=== PATIENT | male | born 1940 | race Caucasian/White ===

== ENCOUNTER 2017-07-12 16:43 | Inpatient (IN) | payer MEDICARE, OTHER ==
[~2017-07-12 16:43] MED LIST: ISOVUE-370 76%-LOCM 1 ML ONE
[2017-07-12 17:35] LABS: #Lymphocytes 2.7 thou/uL (1.20-3.40); #Monocytes 1.6 thou/uL (0.11-0.59); #Neutrophils 10.8 thou/uL (1.40-6.50); %Basophils 0.2 % (0.0-1.0); %Eosinophils 0.3 % (0.0-10.0); %Lymphocytes 17.9 % (21.0-51.0); %Monocytes 10.6 % (0.0-10.0); Hematocrit 51.2 % (42.0-52.0); Mean Platelet Volume 6.9 fL (7.4-10.4); Red Blood Cell (RBC) Count 5.42 mill/uL (4.70-6.10); White Blood Cell (WBC) Count 15.2 thou/uL (4.8-10.8)
[2017-07-12 18:00] LABS: Troponin I Less than 0.010 ng/mL (< 0.028)
[2017-07-12 18:05] LABS: ALT (SGPT) 32 U/L (8-55); AST (SGOT) 23 U/L (5-34); Alkaline Phosphatase 84 U/L (40-150); Anion Gap 14 mmol/L (10-20); BUN (Urea Nitrogen) 24 mg/dL (8.4-25.7); Bilirubin, Total 0.7 mg/dL (0.2-1.2); CK (CPK) 110 U/L (30-200); Calc. Creatinine Clearance 0 mL/min (70-130); Calcium 9.2 mg/dL (7.8-10.44); Carbon Dioxide 23 mmol/L (23-31); Chloride 100 mmol/L (98-107); Estimated GFR-MDRD Greater than 90; Globulin 2.5 g/dL (2.4-3.5); Protein, Total 6.8 g/dL (5.8-8.1)
[2017-07-12] MEDS ORDERED: Levofloxacin 500 mg/D5W 100 ml Premix Bag ONE (19:27)
[2017-07-12 19:45] LABS: Bilirubin Negative (Negative); Blood, Urine Negative (Negative); Glucose, Urine (Dipstick) Negative (Negative); Ketone, Urine Trace mg/dL (Negative); Nitrite Negative (Negative); Protein, Urine (Dipstick) Negative (Neg-Trace); Urobilinogen 0.2 mg/dL (0.2-1.0)
--- NOTE | 2017-07-12 20:09 | RAD ---
PORTABLE CHEST 07/12/17 PROVIDED CLINICAL HISTORY: Dyspnea. Comparison is made with the study dated 07/12/17, 2:56 p.m. The cardiac and mediastinal silhouette is within normal limits. Parenchymal opacity at the left lung base presumably reflects volume loss given its short interval development time. The lungs appear othe rwise clear. Emphysematous changes are seen. No pleural fluid or pneumothorax evident. Atherosclerosi s is noted. IMPRESSION: Development of left basilar parenchymal opacity presumably reflecting subsegmental atelectasis, given that it was not present on the chest radiograph performed earlier today. Followup is recommended. POS: DHRUV
--- NOTE | 2017-07-12 21:41 | CT ---
CT PULMONARY ANGIOGRAM WITH IV CONTRAST AND 3D MIP RECONSTRUCTIONS 07/12/17 PROVIDED CLINICAL HISTORY: Hypoxia. FINDINGS: Comparison is made with the study dated 05/28/16. The heart, pericardium and great vessels demonstrate no acute abnormality. there is no evidence for c entral or segmental pulmonary embolus. Vascular calcification including coronary calcium is seen. The re are several nodular densities present at the right upper lobe, one of which appears stable as comp ared to the prior examination. There is a focal area of parenchymal opacity present at the left lung base posteriorly. Emphysematous changes are seen. Airway appears patent and of normal caliber. No pleural fluid or pneumothorax apparent. The visualized portions of the upper abdomen demonstrate no acute abnormality. Bilateral adrenal kwesi omas are again seen. The osseous structures demonstrate no concerning osteoblastic or osteolytic lesi ons. IMPRESSION: 1. No evidence for central or segmental pulmonary embolus. 2. Emphysematous change. 3. Parenchymal opacity of the left lung base may reflect pneumonia. 4. Right upper lobe pulmonary nodules which are somewhat clustered in distribution suggesting in fectious change. CT followup in 6 to 12 months is recommended. POS: DHRUV
[2017-07-12 22:51] VITALS: BMI 22.1
[2017-07-12] MEDS ORDERED: Melatonin 3 MG TAB PO PRN (23:58)
[2017-07-13] MEDS ORDERED: Bisacodyl 5 MG TAB PO PRN (00:18)
[2017-07-13] MEDS ORDERED: Melatonin 3 MG TAB PO PRN (00:29)
[2017-07-13] MEDS: Nicotine 21 MG PATCH TD SCH (00:50)
[2017-07-13] MEDS ORDERED: Acetaminophen 325 MG TAB PO PRN (00:52)
--- NOTE | 2017-07-13 02:22 | HP ---
PRIMARY CARE PHYSICIAN: Basia Melendrez M.D. CHIEF COMPLAINT: Shortness of breath. HISTORY OF PRESENT ILLNESS: Mr. Hunter is a pleasant 77-year-old gentleman who was seen at [facility] on 07/13/2017. He reports that he has been short of breath on and off over the last couple of months, worse over the last week. He also reports that he has cough that is productive of minimal amount of sputum. He is having difficulty sleeping. He reports that he recently completed a course of steroids. [facility] and was transferred to the emergency room. He reportedly had oxyge n saturations of 80s on room air. He denies any chest pain. He denies any fevers or chills. He denies any sick contacts. He denies a ny body aches. REVIEW OF SYSTEMS: The following complete review of systems was negative, unless otherwise mentioned in the HPI or below: Constitutional: Weight loss or gain, sense of well-being, ability to conduct usual activities, exerc ise tolerance. Skin/Breast: Rash, itching, changes in hair growth or loss, nail changes, breast lumps, tenderness, swelling, nipple discharge. Eyes: Vision, double vision, tearing, blind spots, pain. ENT/Mouth: Headaches (location, time of onset, duration, precipitating factors), vertigo, lightheade dness, injury. Vision, double vision, tearing, blind spots, pain, nose bleeding, colds, obstruction, discharge, dental difficulties, gingival bleeding, dentures, neck stiffness, pain, tenderness, masses in thyroid or other areas. Cardiovascular: Precordial pain, substernal distress, palpitations, syncope, dyspnea on exertion, or thopnea, nocturnal paroxysmal dyspnea, edema, cyanosis, hypertension, heart murmurs, varicosities, ph lebitis, claudication. Respiratory: Pain, shortness of breath, wheezing, stridor, cough, hemoptysis, fever or night sweats. Gastrointestinal: Poor appetite, dysphagia, indigestion, abdominal pain, heartburn, eructation, naus ea, vomiting, hematemesis, jaundice, constipation, or diarrhea, abnormal stools (mandeep-colored, tarry, bloody, greasy, foul smelling), flatulence, hemorrhoids, recent changes in bowel habits. Genitourinary: Urgency, frequency, dysuria, nocturia, hematuria, polyuria, oliguria, unusual (or gerald nge in) color of urine, stones, hesitancy, change in size of stream, dribbling, acute retention or in continence, libido, potency. Musculoskeletal: Pain, swelling, redness or heat of muscles or joints, limitation, of motion, muscul ar weakness, atrophy, cramps. Neurologic/Psychiatric: Convulsions, paralyses, tremor, incoordination, paresthesias, difficulties w ith memory of speech, sensory or motor disturbances, or muscular coordination (ataxia, tremor), emoti onal problems, anxiety, depression, previous psychiatric care, unusual perceptions, hallucinations. Allergy/Immunologic: Skin rash, anemia, bleeding tendency, polydipsia, polyuria, intolerance to heat or cold. PAST MEDICAL HISTORY: Significant for pulmonary embolism diagnosed in 05/2016, he reports finishing anticoagulation course in 09/2016, hypertension, dyslipidemia, chronic obstructive pulmonary disease, PFO closure in the past, stroke in the past due to PFO, depression, dyslipidemia, gastroesophageal r eflux disease, peptic ulcer disease/gastrointestinal bleeding more than 10 years ago and tobacco abus e. PAST SURGICAL HISTORY: Significant for right knee replacement, EGD, PFO closure, left foot surgery a nd tonsillectomy. ALLERGIES: PENICILLIN. CURRENT HOME MEDICATIONS: These include acetaminophen p.r.n., aspirin 81 mg at bedtime, vitamin B12 of 1000 mcg daily, diltiazem 60 mg 2 times a day, ferrous sulfate 65 mg daily, lisinopril 10 mg daily , multivitamins 1 capsule daily, nefazodone 150 mg 2 times a day, Pravachol 40 mg at bedtime. It als o appears that he is taking Plavix 75 mg daily. SOCIAL HISTORY: He smokes 1 pack of cigarillos a day. He drinks alcohol occasionally. He denies re creational drug use. FAMILY HISTORY: He denies any family history of premature coronary artery disease. CODE STATUS: I discussed his code status. He is FULL CODE. PHYSICAL EXAMINATION: GENERAL: On examination, Mr. Hunter is awake and alert, not in acute distress. VITAL SIGNS: Blood pressure is 118/69, pulse is 82, he is breathing at rate of 16, and saturating 94 % on 4 liters of oxygen. He is afebrile. EYES: No scleral icterus. No conjunctival pallor. ENT: Moist mucosal membranes, no oropharyngeal erythema or exudates. NECK: Supple, nontender, normal range of movement. Trachea is midline. RESPIRATORY: Markedly diminished breath sounds at both bases. Accessory muscles of breathing are no t active. Chest wall movements are symmetric bilaterally. CARDIOVASCULAR: S1 and S2 are heard, regular. Peripheral pulses palpable. No carotid bruit, no per icardial rub. ABDOMEN: Soft, nontender, bowel sounds are heard, no hepatomegaly, no splenomegaly. NEUROLOGIC: Cranial nerves II-XII are intact. Deep tendon reflexes are 2+. MUSCULOSKELETAL: Power is 5/5 in all 4 extremities. Normal range of movement at all major extremity joints. SKIN: No rashes or subcutaneous nodules. LYMPHATIC: No cervical lymphadenopathy. PSYCHIATRIC: Normal mood, normal affect, patient is oriented to person, place, and time. LABORATORY DATA AND IMAGING: Mr. Hunter's labs and investigations were reviewed. I reviewed his e lectrocardiogram, which shows normal sinus rhythm with premature ventricular complexes. Corrected QT interval is 443 milliseconds. I also reviewed his chest x-ray, which appears to show a left lower l obe infiltrate. He also had CT angiogram of the chest, which did not reveal any central pulmonary em bolism. He has emphysematous changes, parenchymal opacity of the left lung base which may reflect pn eumonia and right upper lobe pulmonary nodules which are clustered in distribution suggesting infecti ous change. Radiologist recommends CT follow up in 6-12 months. Laboratory investigation show leuko cytosis with 15,200 white cells, of which 71% are neutrophils, normal hemoglobin, normal platelet cou nt, decreased sodium of 133, otherwise normal comprehensive metabolic profile, normal troponin I and urinalysis positive for ketones. ASSESSMENT AND PLAN: Mr. Hunter is a pleasant 77-year-old gentleman who was seen at [facility] on 07/13/2017. His problem list includes: 1. Shortness of breath: Most likely secondary to chronic obstructive pulmonary disease exacerbation , although pneumonia is a possibility as well. 2. Chronic obstructive pulmonary disease exacerbation: He will be admitted to the hospital and tana annita with oxygen, steroids, bronchodilators and antibiotics. We will consult Pulmonology Service for opinion and help with further management. 3. Pneumonia: I will start him on empiric levofloxacin. 4. Tobacco abuse: The patient has been counseled regarding tobacco cessation, we will start nicotin e replacement therapy. 5. Hypertension: Monitor vital signs, titrate antihypertensives as needed. 6. Gastroesophageal reflux disease: Appears to be stable. 7. Dyslipidemia: Continue statins. Many thanks for allowing me to participate in your patient's care. Please feel free to contact me wi th any questions or concerns. LEVEL OF RISK: High. LEVEL OF COMPLEXITY: High.
[2017-07-13 04:23] LABS: #Basophils 0.1 thou/uL (0.0-0.2); #Eosinphils 0.1 thou/uL (0.0-0.7); #Lymphocytes 2.9 thou/uL (1.20-3.40); #Monocytes 1.6 thou/uL (0.11-0.59); #Neutrophils 11.4 thou/uL (1.40-6.50); %Basophils 0.5 % (0.0-1.0); %Eosinophils 0.8 % (0.0-10.0); %Monocytes 9.9 % (0.0-10.0); Hematocrit 44.9 % (42.0-52.0); Mean Platelet Volume 6.8 fL (7.4-10.4); Red Blood Cell (RBC) Count 4.73 mill/uL (4.70-6.10); White Blood Cell (WBC) Count 16.1 thou/uL (4.8-10.8)
[2017-07-13 04:43] LABS: Anion Gap 10 mmol/L (10-20); BUN (Urea Nitrogen) 18 mg/dL (8.4-25.7); Calc. Creatinine Clearance 81 mL/min (70-130); Carbon Dioxide 23 mmol/L (23-31); Chloride 101 mmol/L (98-107); Estimated GFR-MDRD Greater than 90
[2017-07-13] MEDS ORDERED: predniSONE 20 MG TAB PO SCH (08:00)
[2017-07-13] MEDS: Ferrous Sulfate 325 MG TAB PO SCH (08:55)
[2017-07-13] MEDS: NEFAZODONE HCL PO SCH ×2 (09:00→20:28)
[2017-07-13] MEDS ORDERED: Lisinopril 10 MG TAB PO SCH (09:00)
[2017-07-13] MEDS: Cyanocobalamin (Vitamin B-12) 1,000 MCG TAB PO SCH (09:07)
[2017-07-13] MEDS: Clopidogrel Bisulfate 75 MG TAB PO SCH (09:07)
[2017-07-13] MEDS: Multivitamin W/ Minerals 1 TAB PO SCH (09:07)
[2017-07-13] MEDS: Enoxaparin Sodium 40 MG/0.4 ML SYRINGE SC SCH (09:07)
--- NOTE | 2017-07-13 09:54 | PDOC.PN ---
- Subjective Encounter Start Date: 07/13/17 Encounter Start Time: 09:52 Mr. Hunter was seen today in follow-up of COPD exacerbation and pneumonia. He says he is feeling a little better, but he is still quite short winded. He says she was never aware that he had any chronic lung disease, but admits to over 60 pack year history of smoking. - Objective Resuscitation Status: Resuscitation Status FULL:Full Resuscitation MAR Reviewed: Yes Vital Signs & Weight: Vital Signs (12 hours) Temp Pulse Resp BP BP BP Pulse Ox 07/13/17 09:06 116/67 07/13/17 08:00 97.8 F 96 20 94 L 07/13/17 07:50 97.8 F 96 20 116/67 93 L 07/13/17 06:32 101 H 16 96 07/13/17 04:00 93 L 07/13/17 03:50 98.0 F 94 20 115/68 94 L 07/13/17 02:14 91 16 95 07/13/17 00:22 97.8 F 82 16 118/69 94 L 07/13/17 00:00 93 L 07/12/17 23:52 97.8 F 82 16 118/69 94 L 07/12/17 22:36 92 16 92 L Weight Weight 154 lb 11.2 oz I&O: 07/12/17 07/13/17 07/14/17 06:59 06:59 06:59 Intake Total 630 Output Total 700 Balance -70 Result Diagrams: 07/13/17 03:45 07/13/17 03:45 Phys Exam - Physical Examination HEENT: PERRLA decreased air movement, and some rhonchi Cardiovascular: RRR, no significant murmur, no rub Gastrointestinal: soft, non-tender, positive bowel sounds Musculoskeletal: no edema Dx/Plan (1) Acute and chronic respiratory failure Code(s): J96.20 - ACUTE AND CHR RESP FAILURE, UNSP W HYPOXIA OR HYPERCAPNIA Status: Acute (2) Community acquired pneumonia Code(s): J18.9 - PNEUMONIA, UNSPECIFIED ORGANISM Status: Acute (3) Former smoker Status: Chronic (4) HTN (hypertension) Code(s): I10 - ESSENTIAL (PRIMARY) HYPERTENSION Status: Chronic Qualifiers: (5) COPD exacerbation Code(s): J44.1 - CHRONIC OBSTRUCTIVE PULMONARY DISEASE W (ACUTE) EXACERBATION Status: Acute - Plan * Acute on chronic respiratory failure due to Pneumonia, and COPD exacerbation- he is slightly improved today * Continue Levaquin, and Duonebs and steroids * Await Pulmonary input * History of PE- there was no evidence of PE on this CTA * HTN- blood pressure is stable
[2017-07-13] MEDS: Diltiazem HCl SR 60 mg Capsule PO SCH ×2 (11:19→20:30)
--- NOTE | 2017-07-13 19:30 | CON ---
DATE OF CONSULTATION: 07/13/2017 HISTORY OF PRESENT ILLNESS: Rj Hunter is a 77-year-old gentleman, who is well known to me fro m previous admission. He presented to the hospital with increasing shortness of breath, cough, unresponsive to usual home m edication. He sees Dr. Melendrez. He says he has limitation of activity such that he can barely walk a couple hundred feet without getting short of breath. Denies any chest pain, chills, or sweats. He has not been in the office for over a year. His sats were 80% on room air in the ER. PAST MEDICAL HISTORY: Pertinent for, 1. Hypertension. 2. Panic attacks. 3. . 4. Previous PE. 4. Previous pneumonia. PAST SURGICAL HISTORY: As outlined included right knee PFO closure, left foot surgery, tonsils. MEDICATIONS: From home includes aspirin, Tylenol, vitamin, lisinopril 10, Cardizem 60 twice a day, B 12. ALLERGIES: PENICILLIN. SOCIAL HISTORY: Former smoker. No alcohol abuse. FAMILY HISTORY: Unremarkable due to his medical record. REVIEW OF SYSTEMS: Ten-point negative. PHYSICAL EXAMINATION: GENERAL: He appears to be in no distress, coughing. VITAL SIGNS: Blood pressure is 116/67, sats is 96%, respirations 18. CHEST: No wheezing, crackles. CARDIAC: Normal S1, S2. ABDOMEN: Soft. No masses. LABORATORY DATA: White count 16,000, H and H 15 and 44, platelet count was 216. Sodium is 130. Giuliana ctrolytes are normal. X-ray shows left-sided infiltrate. CAT scan shows a left-sided infiltrate. IMPRESSION: 1. Chronic obstructive pulmonary disease exacerbation, bronchitis, left lower lobe pneumonia. 2. Hyponatremia. 3. Previous pulmonary embolism. PLAN: I added prednisone to his present regimen. I will discontinue lisinopril at this stage. Continue supportive care and PT. We will follow while in the ICU. Please note this is 70-minute bedside time spent with the patient.
[2017-07-13] MEDS: predniSONE 20 MG TAB PO SCH (20:30)
[2017-07-13] MEDS: Atorvastatin Calcium 10 MG TAB PO SCH (20:30)
[2017-07-14] MEDS: Nicotine 21 MG PATCH TD SCH (01:26)
[2017-07-14 04:52] LABS: Anion Gap 13 mmol/L (10-20); BUN (Urea Nitrogen) 18 mg/dL (8.4-25.7); Calc. Creatinine Clearance 78 mL/min (70-130); Calcium 9.2 mg/dL (7.8-10.44); Carbon Dioxide 22 mmol/L (23-31); Chloride 105 mmol/L (98-107); Estimated GFR-MDRD Greater than 90
[2017-07-14] MEDS: Ferrous Sulfate 325 MG TAB PO SCH (08:57)
[2017-07-14] MEDS: Cyanocobalamin (Vitamin B-12) 1,000 MCG TAB PO SCH (08:58)
[2017-07-14] MEDS: NEFAZODONE HCL PO SCH ×2 (08:58→22:05)
[2017-07-14] MEDS: predniSONE 20 MG TAB PO SCH ×2 (08:58→22:07)
[2017-07-14] MEDS: Diltiazem HCl SR 60 mg Capsule PO SCH ×2 (08:58→22:06)
[2017-07-14] MEDS: Clopidogrel Bisulfate 75 MG TAB PO SCH (08:58)
[2017-07-14] MEDS: Multivitamin W/ Minerals 1 TAB PO SCH (08:58)
[2017-07-14] MEDS: Enoxaparin Sodium 40 MG/0.4 ML SYRINGE SC SCH (09:00)
--- NOTE | 2017-07-14 10:30 | PDOC.PN ---
- Subjective Encounter Start Date: 07/14/17 Encounter Start Time: 10:15 Subjective: breathing better -: desaturates on removal of nasal oxygen - Objective Resuscitation Status: Resuscitation Status FULL:Full Resuscitation MAR Reviewed: Yes Vital Signs & Weight: Vital Signs (12 hours) Temp Pulse Resp BP Pulse Ox 07/14/17 08:09 97.3 F L 77 14 114/69 94 L 07/14/17 08:00 97.3 F L 77 14 94 L 07/14/17 06:43 95 07/14/17 06:41 74 20 95 07/14/17 01:29 72 18 96 Weight Weight 154 lb 11.2 oz I&O: 07/13/17 07/14/17 07/15/17 06:59 06:59 06:59 Intake Total 630 720 Output Total 700 Balance -70 720 Result Diagrams: 07/13/17 03:45 07/14/17 03:48 Phys Exam - Physical Examination HEENT: PERRLA, moist MMs Neck: no JVD, supple Respiratory: no rales, wheezing present Cardiovascular: RRR, no significant murmur Gastrointestinal: soft, non-tender, positive bowel sounds Musculoskeletal: no edema, pulses present Neurological: non-focal, moves all 4 limbs Psychiatric: A&O x 3 Dx/Plan (1) Acute and chronic respiratory failure Code(s): J96.20 - ACUTE AND CHR RESP FAILURE, UNSP W HYPOXIA OR HYPERCAPNIA Status: Acute Qualifiers: Respiratory failure complication: hypoxia and hypercapnia Qualified Code(s) : J96.21 - Acute and chronic respiratory failure with hypoxia; J96.22 - Acute and chronic respiratory failure with hypercapnia; J96.22 - Acute and chronic respiratory failure with hypercapnia; J96.22 - Acute and chronic respiratory failure with hypercapnia (2) COPD exacerbation Code(s): J44.1 - CHRONIC OBSTRUCTIVE PULMONARY DISEASE W (ACUTE) EXACERBATION Status: Acute (3) Community acquired pneumonia Code(s): J18.9 - PNEUMONIA, UNSPECIFIED ORGANISM Status: Acute Qualifiers: Laterality: left Lung location: lower lobe of lung Qualified Code(s): J18.1 - Lobar pneumonia, unspecified organism (4) HLD (hyperlipidemia) Code(s): E78.5 - HYPERLIPIDEMIA, UNSPECIFIED Status: Chronic Qualifiers: Hyperlipidemia type: unspecified (5) HTN (hypertension) Code(s): I10 - ESSENTIAL (PRIMARY) HYPERTENSION Status: Chronic Qualifiers: Hypertension type: essential hypertension (6) RBBB Code(s): I45.10 - UNSPECIFIED RIGHT BUNDLE-BRANCH BLOCK Status: Chronic - Plan is on levaquin -: oral prednisone, duonebs -: to amb as tolerated with oxygen for today -: taper and dc oxygen for spo2 of 90% * . Review of Systems - Medications/Allergies Allergies/Adverse Reactions: Allergies Allergy/AdvReac Type Severity Reaction Status Date / Time Penicillins Allergy swelling Verified 05/28/16 20:03 Medications: Current Medications Acetaminophen (Tylenol) 650 mg PO Q4H PRN PRN Reason: Headache/Fever or Pain Albuterol/Ipratropium (Duoneb) 3 ml NEB Q4H PRN PRN Reason: SOB &/or Wheezing Albuterol/Ipratropium (Duoneb) 3 ml NEB [id number] [facility] Last Admin: 07/14/17 06:41 Dose: 3 ml Aspirin (Aspirin Chewable) 81 mg PO HS [facility] Last Admin: 07/13/17 20:30 Dose: 81 mg Atorvastatin Calcium (Lipitor) 10 mg PO HS [facility] Last Admin: 07/13/17 20:30 Dose: 10 mg Bisacodyl (Dulcolax) 10 mg PO DAILYPRN PRN PRN Reason: Constipation Clopidogrel Bisulfate (Plavix) 75 mg PO DAILY [facility] Last Admin: 07/14/17 08:58 Dose: 75 mg Cyanocobalamin (Vitamin B-12) 1,000 mcg PO DAILY [facility] Last Admin: 07/14/17 08:58 Dose: 1,000 mcg Diltiazem HCl (Cardizem Sr) 60 mg PO BID [facility] Last Admin: 07/13/17 20:30 Dose: 60 mg Enoxaparin Sodium (Lovenox) 40 mg SC 0900 [facility] Last Admin: 07/14/17 09:00 Dose: Not Given Ferrous Sulfate (Feosol) 325 mg PO QAM-WM [facility] Last Admin: 07/14/17 08:57 Dose: 325 mg Levofloxacin 750 mg/ Device 150 mls @ 100 mls/hr IVPB Q24HR [facility] Last Admin: 07/14/17 01:27 Dose: 150 mls Iron/Minerals/Multivitamins (Theragran M) 1 tab PO DAILY [facility] Last Admin: 07/14/17 08:58 Dose: 1 tab Melatonin (Melatonin) 3 mg PO HS PRN PRN Reason: Insomnia Nicotine (Nicoderm Patch) 21 mg TD Q24HR [facility] Last Admin: 07/14/17 01:26 Dose: 21 mg Nefazodone Hcl 150 (Mg) 0 each PO BID [facility] Last Admin: 07/14/17 08:58 Dose: 1 each Prednisone (Prednisone) 20 mg PO BID [facility] Last Admin: 07/14/17 08:58 Dose: 20 mg Sodium Chloride (Flush - Normal Saline) 10 ml IVF PRN PRN PRN Reason: Saline Flush
[2017-07-14] MEDS: Atorvastatin Calcium 10 MG TAB PO SCH (22:06)
--- NOTE | 2017-07-14 22:12 | PRG ---
DATE OF SERVICE: 07/14/2017 SUBJECTIVE: Mr. Hunter is doing well. He says he is feeling better. OBJECTIVE: VITAL SIGNS: He is afebrile, heart rate is 77, respiratory rate is 14, oximetry is 94% and blood pre ssure 114/69. LUNGS: Remarkable for crackles at both lung bases, not wheezing. HEART: Regular rhythm. Abdomen: Soft. IMAGING DATA: Chest radiograph was reviewed. There is an infiltrate in his left base. CT scan also shows this infiltrate. IMPRESSION: 1. Community-acquired pneumonia. 2. Acute bronchitis with pneumonia. 3. Chronic obstructive pulmonary disease exacerbation. 4. Mild hyponatremia, likely related with pneumonia. 5. History of thromboembolic disease. PLAN: Continue antibiotics, steroids, nebulizer treatments and serial exams. Hopefully, he will be a candidate for discharge within the next 24-48 hours, so he can be home for [place].
[2017-07-15] MEDS: Nicotine 21 MG PATCH TD SCH (01:26)
[2017-07-15] MEDS: NEFAZODONE HCL PO SCH ×2 (08:23→21:30)
[2017-07-15] MEDS: Clopidogrel Bisulfate 75 MG TAB PO SCH (08:24)
[2017-07-15] MEDS: predniSONE 20 MG TAB PO SCH ×2 (08:24→21:30)
[2017-07-15] MEDS: Ferrous Sulfate 325 MG TAB PO SCH (08:24)
[2017-07-15] MEDS: Cyanocobalamin (Vitamin B-12) 1,000 MCG TAB PO SCH (08:24)
[2017-07-15] MEDS: Multivitamin W/ Minerals 1 TAB PO SCH (08:24)
[2017-07-15] MEDS: Diltiazem HCl SR 60 mg Capsule PO SCH ×2 (08:25→21:30)
[2017-07-15] MEDS: Enoxaparin Sodium 40 MG/0.4 ML SYRINGE SC SCH (08:27)
--- NOTE | 2017-07-15 11:56 | PDOC.PN ---
- Subjective Encounter Start Date: 07/15/17 Encounter Start Time: 08:15 Subjective: breathing better, is off oxygen spo2 around 90% -: overall feels better - Objective Resuscitation Status: Resuscitation Status FULL:Full Resuscitation MAR Reviewed: Yes Vital Signs & Weight: Vital Signs (12 hours) Temp Pulse Resp BP Pulse Ox 07/15/17 08:35 98 F 82 20 123/74 90 L 07/15/17 06:41 90 L 07/15/17 06:39 70 18 90 L Weight Weight 154 lb 11.2 oz I&O: 07/14/17 07/15/17 07/16/17 06:59 06:59 06:59 Intake Total 720 1510 350 Balance 720 1510 350 Result Diagrams: 07/13/17 03:45 07/14/17 03:48 Phys Exam - Physical Examination HEENT: PERRLA, moist MMs Neck: no JVD, supple Respiratory: no wheezing, no rales rhonchi+ Cardiovascular: RRR, no significant murmur Gastrointestinal: soft, non-tender, positive bowel sounds Musculoskeletal: no edema, pulses present Neurological: non-focal, moves all 4 limbs Psychiatric: A&O x 3 Dx/Plan (1) COPD exacerbation Code(s): J44.1 - CHRONIC OBSTRUCTIVE PULMONARY DISEASE W (ACUTE) EXACERBATION Status: Acute (2) Acute and chronic respiratory failure Code(s): J96.20 - ACUTE AND CHR RESP FAILURE, UNSP W HYPOXIA OR HYPERCAPNIA Status: Resolved Qualifiers: Respiratory failure complication: hypoxia and hypercapnia Qualified Code(s) : J96.21 - Acute and chronic respiratory failure with hypoxia; J96.22 - Acute and chronic respiratory failure with hypercapnia; J96.22 - Acute and chronic respiratory failure with hypercapnia; J96.22 - Acute and chronic respiratory failure with hypercapnia (3) Community acquired pneumonia Code(s): J18.9 - PNEUMONIA, UNSPECIFIED ORGANISM Status: Acute Qualifiers: Laterality: left Lung location: lower lobe of lung Qualified Code(s): J18.1 - Lobar pneumonia, unspecified organism (4) HLD (hyperlipidemia) Code(s): E78.5 - HYPERLIPIDEMIA, UNSPECIFIED Status: Chronic Qualifiers: Hyperlipidemia type: unspecified (5) HTN (hypertension) Code(s): I10 - ESSENTIAL (PRIMARY) HYPERTENSION Status: Chronic Qualifiers: Hypertension type: essential hypertension (6) RBBB Code(s): I45.10 - UNSPECIFIED RIGHT BUNDLE-BRANCH BLOCK Status: Chronic - Plan is on levaquin, duonebs and prednisone -: to amb as tolerated -: spo2 is improving -: dc plan in am home before jun * . Review of Systems - Medications/Allergies Allergies/Adverse Reactions: Allergies Allergy/AdvReac Type Severity Reaction Status Date / Time Penicillins Allergy swelling Verified 05/28/16 20:03 Medications: Current Medications Acetaminophen (Tylenol) 650 mg PO Q4H PRN PRN Reason: Headache/Fever or Pain Albuterol/Ipratropium (Duoneb) 3 ml NEB Q4H PRN PRN Reason: SOB &/or Wheezing Albuterol/Ipratropium (Duoneb) 3 ml NEB [id number] [facility] Last Admin: 07/15/17 06:39 Dose: 3 ml Aspirin (Aspirin Chewable) 81 mg PO HS [facility] Last Admin: 07/14/17 22:07 Dose: 81 mg Atorvastatin Calcium (Lipitor) 10 mg PO HS [facility] Last Admin: 07/14/17 22:06 Dose: 10 mg Bisacodyl (Dulcolax) 10 mg PO DAILYPRN PRN PRN Reason: Constipation Clopidogrel Bisulfate (Plavix) 75 mg PO DAILY [facility] Last Admin: 07/15/17 08:24 Dose: 75 mg Cyanocobalamin (Vitamin B-12) 1,000 mcg PO DAILY [facility] Last Admin: 07/15/17 08:24 Dose: 1,000 mcg Diltiazem HCl (Cardizem Sr) 60 mg PO BID [facility] Last Admin: 07/15/17 08:25 Dose: 60 mg Enoxaparin Sodium (Lovenox) 40 mg SC 0900 [facility] Last Admin: 07/15/17 08:27 Dose: Not Given Ferrous Sulfate (Feosol) 325 mg PO QAM-WM [facility] Last Admin: 07/15/17 08:24 Dose: 325 mg Levofloxacin 750 mg/ Device 150 mls @ 100 mls/hr IVPB Q24HR [facility] Last Admin: 07/15/17 01:27 Dose: 150 mls Iron/Minerals/Multivitamins (Theragran M) 1 tab PO DAILY [facility] Last Admin: 07/15/17 08:24 Dose: 1 tab Melatonin (Melatonin) 3 mg PO HS PRN PRN Reason: Insomnia Nicotine (Nicoderm Patch) 21 mg TD Q24HR [facility] Last Admin: 07/15/17 01:26 Dose: 21 mg Nefazodone Hcl 150 (Mg) 0 each PO BID [facility] Last Admin: 07/15/17 08:23 Dose: 1 each Prednisone (Prednisone) 20 mg PO BID [facility] Last Admin: 07/15/17 08:24 Dose: 20 mg Sodium Chloride (Flush - Normal Saline) 10 ml IVF PRN PRN PRN Reason: Saline Flush
--- NOTE | 2017-07-15 16:36 | PRG ---
DATE OF SERVICE: 07/15/2017 SUBJECTIVE: Mr. Hunter is feeling better. He does not feel he is quite ready to go home. I think he will be tomorrow. PHYSICAL EXAMINATION: VITAL SIGNS: He is afebrile, heart rate is 82, respiratory rate is 20, oximetry is 90% on room air, and blood pressure 123/74. LUNGS: Remarkable for wheezes in both lung bases. HEART: Regular rhythm. ABDOMEN: Soft. IMPRESSION: 1. Pneumonia. 2. Acute bronchitis. 3. Chronic obstructive pulmonary disease exacerbation. 4. Mild hyponatremia. 5. History of thromboembolic disease. Hopefully, we can discharge him home in the morning. Antibio tics can be switched to p.o. antibiotics.
[2017-07-15] MEDS ORDERED: Nicotine 21 MG PATCH TD SCH (21:00)
[2017-07-15] MEDS: Atorvastatin Calcium 10 MG TAB PO SCH (21:30)
[2017-07-16] MEDS: Multivitamin W/ Minerals 1 TAB PO SCH (08:04)
[2017-07-16] MEDS: Ferrous Sulfate 325 MG TAB PO SCH (08:04)
[2017-07-16] MEDS: Diltiazem HCl SR 60 mg Capsule PO SCH (08:04)
[2017-07-16] MEDS: Clopidogrel Bisulfate 75 MG TAB PO SCH (08:04)
[2017-07-16] MEDS: Enoxaparin Sodium 40 MG/0.4 ML SYRINGE SC SCH (08:04)
[2017-07-16] MEDS: NEFAZODONE HCL PO SCH (08:04)
[2017-07-16] MEDS: predniSONE 20 MG TAB PO SCH (08:04)
[2017-07-16 08:22] VITALS: BP 120/68; TEMP 97.3
--- NOTE | 2017-07-16 10:39 | PDOC.PN ---
- Subjective Encounter Start Date: 07/16/17 Encounter Start Time: 10:15 Subjective: breathing better, is sitting in chair -: wants to go home - Objective Resuscitation Status: Resuscitation Status FULL:Full Resuscitation MAR Reviewed: Yes Vital Signs & Weight: Vital Signs (12 hours) Temp Pulse Resp BP Pulse Ox 07/16/17 08:00 97.3 F L 78 20 93 L 07/16/17 07:27 97.3 F L 78 20 120/68 91 L 07/16/17 07:00 80 16 07/16/17 02:39 92 L 07/16/17 01:06 76 18 92 L Weight Weight 154 lb 11.2 oz I&O: 07/15/17 07/16/17 07/17/17 06:59 06:59 06:59 Intake Total 1510 2160 Balance 1510 2160 Result Diagrams: 07/13/17 03:45 07/14/17 03:48 Phys Exam - Physical Examination HEENT: PERRLA, moist MMs Neck: no JVD, supple Respiratory: no wheezing, no rales Cardiovascular: RRR, no significant murmur Gastrointestinal: soft, non-tender, positive bowel sounds Musculoskeletal: no edema, pulses present Neurological: non-focal, moves all 4 limbs Psychiatric: A&O x 3 Dx/Plan (1) COPD exacerbation Code(s): J44.1 - CHRONIC OBSTRUCTIVE PULMONARY DISEASE W (ACUTE) EXACERBATION Status: Acute (2) Acute and chronic respiratory failure Code(s): J96.20 - ACUTE AND CHR RESP FAILURE, UNSP W HYPOXIA OR HYPERCAPNIA Status: Resolved Qualifiers: Respiratory failure complication: hypoxia and hypercapnia Qualified Code(s) : J96.21 - Acute and chronic respiratory failure with hypoxia; J96.22 - Acute and chronic respiratory failure with hypercapnia; J96.22 - Acute and chronic respiratory failure with hypercapnia; J96.22 - Acute and chronic respiratory failure with hypercapnia (3) Community acquired pneumonia Code(s): J18.9 - PNEUMONIA, UNSPECIFIED ORGANISM Status: Acute Qualifiers: Laterality: left Lung location: lower lobe of lung Qualified Code(s): J18.1 - Lobar pneumonia, unspecified organism (4) HLD (hyperlipidemia) Code(s): E78.5 - HYPERLIPIDEMIA, UNSPECIFIED Status: Chronic Qualifiers: Hyperlipidemia type: unspecified (5) HTN (hypertension) Code(s): I10 - ESSENTIAL (PRIMARY) HYPERTENSION Status: Chronic Qualifiers: Hypertension type: essential hypertension (6) RBBB Code(s): I45.10 - UNSPECIFIED RIGHT BUNDLE-BRANCH BLOCK Status: Chronic - Plan prednisone taper over 16 days -: pt wants to f/u with (his sees him as well) -: nicotine patch, nebulizer, levaquin all faxed to pharmacy -: may dc home if ok with -: spo2 stable on room air * .
--- NOTE | 2017-07-16 18:28 | PRG ---
DATE OF SERVICE: 07/16/2017 SUBJECTIVE: Mr. Hunter did well overnight. He had no complaints. He is fully dressed. PHYSICAL EXAMINATION: VITAL SIGNS: Today's vital signs have been stable. He is afebrile. LUNGS: Clear. HEART: Regular rhythm. ABDOMEN: Soft. IMPRESSION: Chronic obstructive pulmonary disease exacerbation, clinically improved. We will taper his prednisone starting at 30 mg a day as prescribed by Dr. Bay. He does not need Symbicort and Spiriva and cannot afford this. He will continue with ipratropium and albuterol. He will picker packer a new nebulizer on the way home to use his nebulizer medicine 4 times a day. I will see him in followup in the office in 2 weeks.
--- NOTE | 2017-07-16 19:22 | DIS ---
DATE OF ADMISSION: 07/12/2017 DATE OF DISCHARGE: 07/16/2017 DISCHARGE DISPOSITION: To home. PRIMARY DISCHARGE DIAGNOSES: Pneumonia; chronic obstructive pulmonary disease exacerbation resolving ; acute on chronic respiratory failure, resolved. SECONDARY DISCHARGE DIAGNOSES: Hypertension, dyslipidemia, chronic right bundle branch block. PROCEDURES DONE DURING HOSPITALIZATION: CT angio chest done on the day of admission showed no eviden ce of PE. There were emphysematous changes seen. Left lung base parenchymal opacity suspicious for pneumonia, also right upper lobe changes were suggestive of infectious pneumonitis. Blood cultures x 2 no growth. Influenza A and B antigens were negative. Had a white count of 15 on the day of admiss ion with 71% neutrophils. DISCHARGE MEDICATIONS: Albuterol inhaler q.6 hourly p.r.n., DuoNebs q.6 hourly p.r.n., aspirin 81 mg p.o. bedtime, vitamin C 1000 mg p.o. daily, Symbicort inhaler twice daily, vitamin D3 2000 units p.o . daily, Plavix 75 mg p.o. daily, vitamin B12 1000 mcg p.o. daily, Cardizem CD 60 mg p.o. twice daily , ferrous sulfate 65 mg p.o. daily, Levaquin 500 mg p.o. daily for another 6 days, lisinopril 10 mg p .o. daily, multivitamin 1 tab once daily, nefazodone 150 mg p.o. twice daily, nicotine patch 21 mg da chelsey, Pravachol 40 mg p.o. at bedtime, prednisone tapering dose for a total of 16 days, Flomax 0.4 mg p.o. daily, Spiriva inhaler 18 mcg daily, CoQ10 100 mg p.o. daily. ALLERGIES: Allergic to PENICILLIN. DISCHARGE PLAN: Patient to follow up with Dr. Reed in 2 weeks. BRIEF COURSE DURING HOSPITALIZATION: Patient initially got admitted with complaints of shortness of breath. Initial CT angio chest done was suggestive of pneumonia in addition to his COPD exacerbation . The patient has ongoing history of smoking cigarettes. He was placed on steroids along with antib iotics. He has had consultation with Dr. Anne/Derek for Pulmonology. He was initially on oxygen whi ch has been tapered and discontinued. He is saturating around 93%-94% on room air now. The patient is ambulating in the room. He is also eating well. His medications have been faxed to the pharmacy. He needs to continue steroid taper over the course of 16 days. He needs follow up with Dr. Derek person he wants to follow as his also follows up with him. He needs to see him in 2 weeks with micky agustin a follow up x-ray to see for complete resolution of his pneumonia. Please see a face to face doc misty on [facility] for the day of discharge.
== END 2017-07-16 14:37 | disposition home or self-care (01) | DRG 193 ==
LOC: ERS 16:43 → ONC 19:30
PROVIDERS: ADMIT Internal Medicine; ATTEND Internal Medicine
DX: J18.1 Lobar pneumonia, unspecified organism (principal); J96.21 Acute and chronic respiratory failure with hypoxia; I45.10 Unspecified right bundle-branch block; J96.22 Acute and chronic respiratory failure with hypercapnia; E87.1 Hypo-osmolality and hyponatremia; J44.0 Chronic obstructive pulmonary disease with (acute) lower respiratory infection; J44.1 Chronic obstructive pulmonary disease with (acute) exacerbation; E78.5 Hyperlipidemia, unspecified; I10 Essential (primary) hypertension; Z86.711 Personal history of pulmonary embolism; Z86.73 Personal history of transient ischemic attack (TIA), and cerebral infarction without residual deficits; F32.9 Major depressive disorder, single episode, unspecified; K21.9 Gastro-esophageal reflux disease without esophagitis; F17.210 Nicotine dependence, cigarettes, uncomplicated; Z96.651 Presence of right artificial knee joint; Z88.0 Allergy status to penicillin; Z79.01 Long term (current) use of anticoagulants; Z79.82 Long term (current) use of aspirin; J20.9 Acute bronchitis, unspecified; E78.00 Pure hypercholesterolemia, unspecified; F41.0 Panic disorder [episodic paroxysmal anxiety]; H40.9 Unspecified glaucoma
CPT/HCPCS: 36415; 71010; 71275; 80048; 80053; 81003; 82550; 82553; 83880; 84484; 85025; 87040; 93005; 94640; 94760; 96361; 96365; 99406; J1650; J1956; J3370; J7506; J7620

== ENCOUNTER 2017-07-31 07:48 | Outpatient (CLI) | payer MEDICARE, OTHER ==
--- NOTE | 2017-07-31 08:29 | RAD ---
PA AND LATERAL CHEST XRAY: DATE: 07/31/17. HISTORY: Dyspnea. COMPARISON: 12/01/16. FINDINGS: There are 2 separate nodular densities overlying the left mid lung zone which were not present on the prior exam, and while findings could be related to pulmonary nodules, focal areas of pneumonitis is a possibility. The right lung remains clear. Cardiac silhouette and pulmonary vasculature are withi n normal limits. Metallic device again overlies the posterior aspect of the cardiac silhouette. Vas cular calcification in the thoracic aorta. Degenerative changes are again noted in the spine. No ot her interval change. IMPRESSION: Nodular and increased interstitial densities overlying the left mid lung zone. Findings could be rel ated to infectious process, but followup to complete resolution is recommended to ensure resolution o f the nodular densities. CODE T POS: [facility]
== END 2017-07-31 07:49 | disposition home or self-care (01) ==
LOC: RAD 07:48
PROVIDERS: ATTEND Internal Medicine Critical Care Medicine
DX: R06.00 Dyspnea, unspecified (principal); R91.8 Other nonspecific abnormal finding of lung field
CPT/HCPCS: 71046

== ENCOUNTER 2017-09-12 09:40 | Outpatient (CLI) | payer MEDICARE, OTHER ==
--- NOTE | 2017-09-12 11:31 | RAD ---
TWO VIEWS CHEST: Comparison: 07-31-17 History: Dyspnea. FINDINGS: Two views of the chest shows normal sized cardiomediastinal silhouette. Increased interstitial markin gs are present. The previously seen opacities marked in the left lung have slightly improved and may have represented infiltrates which are improving. IMPRESSION: Improving left sided infiltrates. POS: [facility]
== END 2017-09-12 09:41 | disposition home or self-care (01) ==
LOC: RAD 09:40
PROVIDERS: ATTEND Internal Medicine Critical Care Medicine
DX: R06.00 Dyspnea, unspecified (principal); R91.8 Other nonspecific abnormal finding of lung field
CPT/HCPCS: 71046

== ENCOUNTER 2018-06-25 10:23 | Outpatient (CLI) | payer MEDICARE, OTHER ==
--- NOTE | 2018-06-25 10:51 | RAD ---
TWO VIEW CHEST: Comparison: 09-12-17 Indication: Dyspnea. FINDINGS: Mild interstitial prominence of the lungs is similar in appearance. There is vascular calcification. Cardiac silhouette is normal in size. No new consolidation or effusion. Prostatic device is again see n overlying the cardiac silhouette. Thoracic kyphosis is stable. IMPRESSION: No focal consolidation. POS: [facility]
== END 2018-06-25 10:24 | disposition home or self-care (01) ==
LOC: RAD 10:23
PROVIDERS: ATTEND Internal Medicine Critical Care Medicine
DX: R06.00 Dyspnea, unspecified (principal)
CPT/HCPCS: 71046

== ENCOUNTER 2019-07-09 09:57 | Outpatient (CLI) | payer MEDICARE, OTHER ==
--- NOTE | 2019-07-09 11:26 | RAD ---
PA AND LATERAL VIEWS CHEST: Date: 07/09/19 HISTORY: Dyspnea. FINDINGS: Comparison made with exam of 06/25/18. The heart size is normal. The aorta is tortuous. Chronic parenchymal changes are stable. No lobar con solidation, pneumothoraces, or pleural effusions are seen. There are degenerative changes of the spin e. IMPRESSION: Stable exam. No acute process. POS: [facility]
== END 2019-07-09 09:58 | disposition home or self-care (01) ==
LOC: RAD 09:57
PROVIDERS: ATTEND Internal Medicine Critical Care Medicine
DX: R06.00 Dyspnea, unspecified (principal)
CPT/HCPCS: 71046

== ENCOUNTER 2020-09-17 11:15 | Outpatient (CLI) | payer MEDICARE, OTHER ==
--- NOTE | 2020-09-17 11:42 | RAD ---
RADIOGRAPH CHEST 2 VIEW: DATE: 09/17/2020 HISTORY: 80-year-old male with dyspnea FINDINGS: The thoracic aorta is tortuous and ectatic. There is no evidence of airspace density, pulmonary edema , or pneumothorax. There is no cardiomegaly or pleural effusion. IMPRESSION: 1) No acute cardiopulmonary findings. 2) ectasia of thoracic aorta.
== END 2020-09-17 11:16 | disposition home or self-care (01) ==
LOC: BICRAD 11:15
PROVIDERS: ATTEND Internal Medicine Critical Care Medicine
DX: R06.00 Dyspnea, unspecified (principal); I77.819 Aortic ectasia, unspecified site
CPT/HCPCS: 71046

== ENCOUNTER 2022-02-14 09:29 | Outpatient (CLI) | payer MEDICARE, OTHER | END 2022-02-14 09:30 | disposition home or self-care (01) | LOC: RAD 09:29 | PROVIDERS: ATTEND Internal Medicine Critical Care Medicine | DX: R06.00 Dyspnea, unspecified (principal) | CPT/HCPCS: 71046 ==

== ENCOUNTER 2023-09-25 14:01 | Outpatient (CLI) | payer MEDICARE, OTHER | END 2023-09-25 14:02 | disposition home or self-care (01) | LOC: RAD 14:01 | PROVIDERS: ATTEND Internal Medicine Critical Care Medicine | DX: R06.00 Dyspnea, unspecified (principal) | CPT/HCPCS: 71046 ==

== ENCOUNTER 2024-05-20 09:50 | Outpatient (CLI) | payer MEDICARE, OTHER | END 2024-05-20 09:51 | disposition home or self-care (01) | LOC: RAD 09:50 | PROVIDERS: ATTEND Internal Medicine Critical Care Medicine | DX: R06.00 Dyspnea, unspecified (principal) | CPT/HCPCS: 71046 ==